=== PATIENT | male | born 1995 | race Caucasian/White ===

== ENCOUNTER 2016-11-28 07:10 | Emergency (ER) | payer BC ==
[2016-11-28 09:34] LABS: HEMOGLOBIN 13.5 gm/dl (14.0-17.5); RED BLOOD COUNT 4.6 M/UL (4.20-5.50); WHITE BLOOD COUNT 7.3 K/UL (4.5-11.0)
[2016-11-28 10:00] LABS: BUN/CREATININE RATIO 16 (0-10)
== END 2016-11-28 10:55 | disposition home or self-care (01) ==
LOC: ER1 07:10
PROVIDERS: Physician Assistant
DX: S46.912A Strain of unspecified muscle, fascia and tendon at shoulder and upper arm level, left arm, initial encounter (principal); K21.9 Gastro-esophageal reflux disease without esophagitis; Z88.0 Allergy status to penicillin; Z79.899 Other long term (current) drug therapy; X50.0XXA Overexertion from strenuous movement or load, initial encounter; Y99.0 Civilian activity done for income or pay
CPT/HCPCS: 36415; 71020; 80053; 82550; 82553; 83874; 84484; 85025; 93005; 99284

== ENCOUNTER 2021-02-26 09:11 | Emergency (ER) | payer BC ==
[~2021-02-26 09:11] MED LIST: LORTAB 5-325 M1 EACH PO; PEPCID20 MG PO; PREVACID30 MG PO
[2021-02-26 10:09] LABS: HEMOGLOBIN 16.3 gm/dl (14.0-17.5); RED BLOOD COUNT 5.39 M/UL (4.20-5.50); WHITE BLOOD COUNT 13.9 K/UL (4.5-11.0)
[2021-02-26 10:30] LABS: BUN/CREATININE RATIO 15 (0-10)
[2021-02-26] MEDS ORDERED: VIBRAMYCIN100 MG PO (11:52)
[2021-03-07 16:11] LABS: BABESIA MICROTI IGG <1:10 (Neg:<1:10); BABESIA MICROTI IGM <1:10 (Neg:<1:10)
== END 2021-02-26 12:04 | disposition home or self-care (01) ==
LOC: ER1 09:11
PROVIDERS: Physician Assistant
DX: S90.861A Insect bite (nonvenomous), right foot, initial encounter (principal); R51.9 Headache, unspecified; Z90.89 Acquired absence of other organs; Z88.0 Allergy status to penicillin; W57.XXXA Bitten or stung by nonvenomous insect and other nonvenomous arthropods, initial encounter; Z20.822 Contact with and (suspected) exposure to COVID-19
CPT/HCPCS: 80053; 85025; 86618; 86753; 86757; 99283; U0002